=== PATIENT | female | born 1975 | race Caucasian/White ===

== ENCOUNTER 2017-11-12 02:04 | Emergency (ER) | payer BC ==
[2017-11-12] MEDS ORDERED: HYDROmorphone 0.5 MG/0.5 ML SYRINGE IVPUSH ONE (02:32)
[2017-11-12] MEDS ORDERED: Ondansetron 4 MG/2 ML SDV IVPUSH ONE (02:39)
--- NOTE | 2017-11-12 02:39 | EDM.PDOC ---
ED HPI GENERAL MEDICAL PROBLEM - General Chief Complaint: Chest Pain Stated Complaint: CHEST PAIN Time Seen by Provider: 11/12/17 02:17 Source of Information: Reports: Patient, Family (, son) History Limitations: Reports: No Limitations - History of Present Illness INITIAL COMMENTS - FREE TEXT/NARRATIVE: The patient states that she developed sudden onset upper central chest discomfort radiating through between her scapulae around 09:00 yesterday morning , 11/11/2017. Her chest pain is made worse with movement. She had associated nausea, diaphoresis, dyspnea, and a sense of impending doom. She has also had a headache and lightheadedness. She states that she was feeling dizzy while on the toilet. She yelled out for her before falling. The caught the patient, and she was uninjured. She now feels generally weak, but denies neurologic symptoms such as tingling, numbness, or focal weakness. The patient also reports a slight cough. The patient states that she took 2 Tylenol migraine at 13:30, and another 2 at 19:30, with questionable relief of her headache. No prior similar symptoms. The patient reports that she has had a headache during the day over the past 2 weeks. In the ED, it is noted that the patient's oxygen saturation is 100% on room air. The patient's PCP is Dr. Tatum. Chest Pain Score (Numeric/FACES): 9 - Related Data Allergies Allergy/AdvReac Type Severity Reaction Status Date / Time seasonal Allergy asthma Uncoded 09/26/14 08:10 like symptoms Home Meds: Home Meds Albuterol [Proair HFA] 1 puff IH Q4H PRN 09/25/14 [History] Loratadine/Pseudoephedrine [Claritin-D 12 Hour] 1 tab PO Q12HR PRN 09/25/14 [ History] Multivitamin [Super Multivitamin] 1 tab PO DAILY 09/25/14 [History] Progesterone [First-Progesterone VGS 25] 25 mg VG DAILY 09/25/14 [History] Past Medical History HEENT History: Reports: Allergic Rhinitis - Past Surgical History HEENT Surgical History: Reports: Tonsillectomy GI Surgical History: Reports: Appendectomy, Cholecystectomy Female Surgical History: Reports: Tubal Ligation Social & Family History - Family History Family Medical History: Noncontributory - Tobacco Use Smoking Status *Q: Never Smoker Second Hand Smoke Exposure: No - Caffeine Use Caffeine Use: Reports: None - Alcohol Use Alcohol Use History: No - Recreational Drug Use Recreational Drug Use: No - Living Situation & Occupation Living situation: Reports: , with Spouse, with Family (Son) 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 ED EXAM, GENERAL - Physical Exam Exam: See Below Exam Limited By: No Limitations General Appearance: Alert, WD/WN, Anxious Eye Exam: Bilateral Eye: Normal Inspection Ears: Normal External Exam, Hearing Grossly Normal Nose: Normal Inspection, No Blood Throat/Mouth: Normal Inspection, Normal Lips, Normal Voice, No Airway Compromise Head: Atraumatic, Normocephalic Neck: Normal Inspection, Full Range of Motion Respiratory/Chest: No Respiratory Distress, Lungs Clear, Normal Breath Sounds, No Accessory Muscle Use, Chest Non-Tender Cardiovascular: Normal Peripheral Pulses, Regular Rate, Rhythm, No Edema, No Gallop, No JVD, No Murmur, No Rub Peripheral Pulses: 4+: Radial (L), Radial (R) GI/Abdominal: Normal Bowel Sounds, Soft, Non-Tender, No Organomegaly, No Distention, No Abnormal Bruit, No Mass (Female) Exam: Deferred Rectal (Female) Exam: Deferred Back Exam: Normal Inspection, Full Range of Motion, NT Extremities: Normal Inspection, Normal Range of Motion, No Pedal Edema, Normal Capillary Refill Neurological: Alert, Oriented, Normal Cognition, No Motor/Sensory Deficits Psychiatric: Normal Affect, Anxious Skin Exam: Warm, Dry, Intact, Normal Color, No Rash EKG INTERPRETATION EKG Date: 11/12/17 Time: 02:12 Rhythm: NSR Rate (Beats/Min): 93 [place]: Normal P-Wave: Present QRS: Normal ST-T: Normal QT: Normal Comparison: NA - No Prior EKG Course - Vital Signs Last Recorded V/S: Last Vital Signs Temp 37.3 C 11/12/17 02:08 Pulse 96 11/12/17 02:08 Resp 13 11/12/17 02:08 BP 111/60 11/12/17 02:08 Pulse Ox 96 11/12/17 02:08 Orthostatic Blood Pressure [ 102/66 Standing] Orthostatic Blood Pressure [ 106/64 Sitting] Orthostatic Blood Pressure [ 106/62 Supine] - Orders/Labs/Meds Orders: Active Orders 24 hr Category Date Time Status EKG Documentation Completion [RC] STAT Care 11/12/17 02:30 Active Orthostatic Vital Signs [RC] STAT Care 11/12/17 02:31 Active Abdomen w Cont [CT] Routine Exams 11/12/17 02:31 Taken Chest 1V Frontal [CR] Stat Exams 11/12/17 02:34 Taken Chest w Cont [CT] Stat Exams 11/12/17 02:31 Taken Sodium Chloride 0.9% [Normal Saline] 1,000 ml Med 11/12/17 02:45 Active IV ASDIRECTED Medication Orders Sodium Chloride (Normal Saline) 1,000 mls @ 150 mls/hr IV ASDIRECTED ROXANNE Last Admin: 11/12/17 02:52 Dose: 150 mls/hr Labs: Laboratory Tests 11/12/17 11/12/17 11/12/17 Range/Units 02:13 02:13 02:13 WBC 14.34 H (3.98-10.04) K/mm3 RBC 4.50 (3.98-5.22) M/mm3 Hgb 13.9 (11.2-15.7) gm/L Hct 40.5 (34.1-44.9) % MCV 90.0 (79.4-94.8) fl MCH 30.9 (25.6-32.2) pg MCHC 34.3 (32.2-35.5) g/dl RDW Std Deviation 38.8 (36.4-46.3) fL Plt Count 200 (182-369) K/mm3 MPV 9.9 (9.4-12.3) fl Neutrophils % (Manual) 92 H (40-60) % Band Neutrophils % 2 (0-10) % Lymphocytes % (Manual) 0 L (20-40) % Atypical Lymphs % 2 % Monocytes % (Manual) 4 (2-10) % Eosinophils % (Manual) 0 L (0.7-5.8) % Basophils % (Manual) 0 L (0.1-1.2) Platelet Estimate Adequate Plt Morphology Comment Normal RBC Morph Comment Normal PT 10.8 (8.0-13.0) SECONDS INR 1.01 APTT 25 (22-36) SECONDS D-Dimer, Quantitative 0.25 (0.19-0.59) mg/L Puncture Site ABG pH (7.35-7.45) ABG pCO2 (35.0-45.0) mmHg ABG pO2 (80.0-100.0) mmHg ABG HCO3 (22.0-26.0) meq/L ABG O2 Saturation (96.0-97.0) % ABG Base Excess (-2-2.0) A-a Gradient mmHg O2 Delivery Device FiO2 (21.00-100.00) % Sodium 137 (136-145) mEq/L Potassium 3.3 L (3.5-5.1) mEq/L Chloride 101 (98-107) mEq/L Carbon Dioxide 28 (21-32) mEq/L Anion Gap 11.3 (5-15) BUN 14 (7-18) mg/dL Creatinine 0.8 (0.55-1.02) mg/dL Est Cr Clr Drug Dosing 65.54 mL/min Estimated GFR (MDRD) > 60 (>60) mL/min BUN/Creatinine Ratio 17.5 (14-18) Glucose 169 H (74-106) mg/dL Calcium 8.5 (8.5-10.1) mg/dL Magnesium 1.6 L (1.8-2.4) mg/dl Total Bilirubin 0.6 (0.2-1.0) mg/dL AST 42 H (15-37) U/L ALT 52 (14-59) U/L Alkaline Phosphatase 59 (46-116) U/L Troponin I 0.051 (0.00-0.056) ng/mL NT-Pro-B Natriuret Pep (0-125) pg/mL Total Protein 6.9 (6.4-8.2) g/dl Albumin 3.8 (3.4-5.0) g/dl Globulin 3.1 gm/dL Albumin/Globulin Ratio 1.2 (1-2) TSH 3rd Generation 2.019 (0.358-3.74) uIU/mL Urine Color (Yellow) Urine Appearance (Clear) Urine pH (5.0-8.0) Ur Specific [place] (1.005-1.030) Urine Protein (Negative) Urine Glucose (UA) (Negative) Urine Ketones (Negative) Urine Occult Blood (Negative) Urine Nitrite (Negative) Urine Bilirubin (Negative) Urine Urobilinogen (0.2-1.0) Ur Leukocyte Esterase (Negative) Urine RBC (0-5) /hpf Urine WBC (0-5) /hpf Urine WBC Clumps (NOT SEEN) /hpf Ur Epithelial Cells (0-5) /hpf Urine Bacteria (FEW) /hpf Urine Mucus (FEW) /hpf Urine HCG, Qual (NEGATIVE) 11/12/17 11/12/17 11/12/17 Range/Units 02:13 02:45 03:35 WBC (3.98-10.04) K/mm3 RBC (3.98-5.22) M/mm3 Hgb (11.2-15.7) gm/L Hct (34.1-44.9) % MCV (79.4-94.8) fl MCH (25.6-32.2) pg MCHC (32.2-35.5) g/dl RDW Std Deviation (36.4-46.3) fL Plt Count (182-369) K/mm3 MPV (9.4-12.3) fl Neutrophils % (Manual) (40-60) % Band Neutrophils % (0-10) % Lymphocytes % (Manual) (20-40) % Atypical Lymphs % % Monocytes % (Manual) (2-10) % Eosinophils % (Manual) (0.7-5.8) % Basophils % (Manual) (0.1-1.2) Platelet Estimate Plt Morphology Comment RBC Morph Comment PT (8.0-13.0) SECONDS INR APTT (22-36) SECONDS D-Dimer, Quantitative (0.19-0.59) mg/L Puncture Site Lt brachial ABG pH 7.46 H (7.35-7.45) ABG pCO2 31.5 L (35.0-45.0) mmHg ABG pO2 83.0 (80.0-100.0) mmHg ABG HCO3 22.3 (22.0-26.0) meq/L ABG O2 Saturation 97.9 H (96.0-97.0) % ABG Base Excess -0.3 (-2-2.0) A-a Gradient 12 mmHg O2 Delivery Device Room air FiO2 21.00 (21.00-100.00) % Sodium (136-145) mEq/L Potassium (3.5-5.1) mEq/L Chloride (98-107) mEq/L Carbon Dioxide (21-32) mEq/L Anion Gap (5-15) BUN (7-18) mg/dL Creatinine (0.55-1.02) mg/dL Est Cr Clr Drug Dosing mL/min Estimated GFR (MDRD) (>60) mL/min BUN/Creatinine Ratio (14-18) Glucose (74-106) mg/dL Calcium (8.5-10.1) mg/dL Magnesium (1.8-2.4) mg/dl Total Bilirubin (0.2-1.0) mg/dL AST (15-37) U/L ALT (14-59) U/L Alkaline Phosphatase (46-116) U/L Troponin I (0.00-0.056) ng/mL NT-Pro-B Natriuret Pep 58 (0-125) pg/mL Total Protein (6.4-8.2) g/dl Albumin (3.4-5.0) g/dl Globulin gm/dL Albumin/Globulin Ratio (1-2) TSH 3rd Generation (0.358-3.74) uIU/mL Urine Color Yellow (Yellow) Urine Appearance Slt cloudy H (Clear) Urine pH 7.5 (5.0-8.0) Ur Specific [place] 1.015 (1.005-1.030) Urine Protein 2+ H (Negative) Urine Glucose (UA) Negative (Negative) Urine Ketones 2+ H (Negative) Urine Occult Blood 1+ H (Negative) Urine Nitrite Negative (Negative) Urine Bilirubin Negative (Negative) Urine Urobilinogen 0.2 (0.2-1.0) Ur Leukocyte Esterase Trace H (Negative) Urine RBC 0-5 (0-5) /hpf Urine WBC 5-10 H (0-5) /hpf Urine WBC Clumps Rare (NOT SEEN) /hpf Ur Epithelial Cells 5-10 H (0-5) /hpf Urine Bacteria Rare (FEW) /hpf Urine Mucus Not seen (FEW) /hpf Urine HCG, Qual (NEGATIVE) 11/12/17 Range/Units 03:35 WBC (3.98-10.04) K/mm3 RBC (3.98-5.22) M/mm3 Hgb (11.2-15.7) gm/L Hct (34.1-44.9) % MCV (79.4-94.8) fl MCH (25.6-32.2) pg MCHC (32.2-35.5) g/dl RDW Std Deviation (36.4-46.3) fL Plt Count (182-369) K/mm3 MPV (9.4-12.3) fl Neutrophils % (Manual) (40-60) % Band Neutrophils % (0-10) % Lymphocytes % (Manual) (20-40) % Atypical Lymphs % % Monocytes % (Manual) (2-10) % Eosinophils % (Manual) (0.7-5.8) % Basophils % (Manual) (0.1-1.2) Platelet Estimate Plt Morphology Comment RBC Morph Comment PT (8.0-13.0) SECONDS INR APTT (22-36) SECONDS D-Dimer, Quantitative (0.19-0.59) mg/L Puncture Site ABG pH (7.35-7.45) ABG pCO2 (35.0-45.0) mmHg ABG pO2 (80.0-100.0) mmHg ABG HCO3 (22.0-26.0) meq/L ABG O2 Saturation (96.0-97.0) % ABG Base Excess (-2-2.0) A-a Gradient mmHg O2 Delivery Device FiO2 (21.00-100.00) % Sodium (136-145) mEq/L Potassium (3.5-5.1) mEq/L Chloride (98-107) mEq/L Carbon Dioxide (21-32) mEq/L Anion Gap (5-15) BUN (7-18) mg/dL Creatinine (0.55-1.02) mg/dL Est Cr Clr Drug Dosing mL/min Estimated GFR (MDRD) (>60) mL/min BUN/Creatinine Ratio (14-18) Glucose (74-106) mg/dL Calcium (8.5-10.1) mg/dL Magnesium (1.8-2.4) mg/dl Total Bilirubin (0.2-1.0) mg/dL AST (15-37) U/L ALT (14-59) U/L Alkaline Phosphatase (46-116) U/L Troponin I (0.00-0.056) ng/mL NT-Pro-B Natriuret Pep (0-125) pg/mL Total Protein (6.4-8.2) g/dl Albumin (3.4-5.0) g/dl Globulin gm/dL Albumin/Globulin Ratio (1-2) TSH 3rd Generation (0.358-3.74) uIU/mL Urine Color (Yellow) Urine Appearance (Clear) Urine pH (5.0-8.0) Ur Specific [place] (1.005-1.030) Urine Protein (Negative) Urine Glucose (UA) (Negative) Urine Ketones (Negative) Urine Occult Blood (Negative) Urine Nitrite (Negative) Urine Bilirubin (Negative) Urine Urobilinogen (0.2-1.0) Ur Leukocyte Esterase (Negative) Urine RBC (0-5) /hpf Urine WBC (0-5) /hpf Urine WBC Clumps (NOT SEEN) /hpf Ur Epithelial Cells (0-5) /hpf Urine Bacteria (FEW) /hpf Urine Mucus (FEW) /hpf Urine HCG, Qual Negative (NEGATIVE) Meds: Medications Generic Name Dose Route Start Last Admin Trade Name Esa PRN Reason Stop Dose Admin Sodium Chloride 1,000 mls @ 150 mls/hr 11/12/17 02:45 11/12/17 02:52 Normal Saline IV 150 mls/hr ASDIRECTED ROXANNE Administration Discontinued Medications Generic Name Dose Route Start Last Admin Trade Name Esa PRN Reason Stop Dose Admin Hydromorphone HCl 0.5 mg 11/12/17 02:32 11/12/17 02:52 Dilaudid IVPUSH 11/12/17 02:33 0.5 mg ONETIME ONE Administration Hydromorphone HCl Confirm 11/12/17 02:48 11/12/17 02:53 Dilaudid Administered 11/12/17 02:49 Not Given Dose 0.5 mg .ROUTE .STK-MED ONE Magnesium Sulfate 2 gm/ Premix 50 mls @ 50 mls/hr 11/12/17 03:12 11/12/17 03: 23 IV 11/12/17 04:11 50 mls/hr ONETIME ONE Administration Iopamidol 100 ml 11/12/17 03:03 11/12/17 03:15 Isovue-370 (76%) IVPUSH 11/12/17 03:04 100 ml ONETIME ONE Administration Ondansetron HCl 4 mg 11/12/17 02:39 11/12/17 02:56 Zofran IVPUSH 11/12/17 02:40 4 mg ONETIME ONE Administration - Re-Assessments/Exams Free Text/Narrative Re-Assessment/Exam: 11/12/17 02:38 The triage note indicates that the patient had sudden onset central chest pain, 9 or 10 out of 10, radiating through to between her scapulae. This is strongly suggestive of an aortic dissection. In actual fact, however, the patient tells me that it is not a pain, rather, it is a discomfort, which lessens my concern for a dissection, nevertheless, I have ordered a CT aortogram, along with a chest pain evaluation. I have ordered Dilaudid for her pain and Zofran for nausea, along with IV fluid. 11/12/17 03:04 The patient's ABG represents a chronic (compensated) respiratory alkalosis. 11/12/17 03:15 Both the patient's potassium and magnesium are mildly depressed, at 3.3 and 1.6 , respectively. I have ordered a 2 g Mg rider. 11/12/17 03:33 CT aortogram of the chest and abdomen is read by [facility] as "No acute findings in the arterial system of the chest or abdomen. No aortic dissection." Two-view chest radiograph appears to be grossly normal. Cardiac silhouette is within normal limits. No pulmonary vascular congestion. No pleural effusions. No focal infiltrate. No pneumothorax. Formal read per the Radiologist pending. 11/12/17 03:49 The patient is not orthostatic. 11/12/17 04:25 The patient's urinalysis is consistent with contamination, not a UTI. 11/12/17 04:38 Test results discussed with the patient, her , and son. It appears that the patient was suffering from a panic attack and hyperventilation. Her ABG confirmed hyperventilation, and the remainder of her symptoms and lab work are consistent with that, as well. This was explaine the patient's lightheadedness and near-syncope, headache, chest pain, nausea, diaphoresis, and sense of impending doom. He would explain the stress reaction of her elevated WBC count without bandemia, her mild hypokalemia, and even her mild hyperglycemia. Other medical causes such as metabolic acidosis, hypocalcemia, hypoglycemia, hyperthyroidism, liver failure, severe anemia, sepsis, acute coronary event, pneumothorax, pneumonia, dysrhythmia, PE, , and CHF have been ruled out. Since this is the first time that the patient has had such an episode, no treatment is necessary, however, I am recommending that if they recur, that she follow-up with Dr. Tatum to discuss treatment options for anxiety. Departure - Departure Time of Disposition: 04:41 Disposition: Home, Self-Care 01 Condition: Good Clinical Impression: Hyperventilation syndrome - Discharge Information Instructions: Hyperventilation Referrals: Agusto Tatum MD [Primary Care Provider] - Forms: ED Department Discharge Additional Instructions: You were seen in the emergency room for chest pain, nausea, sweatiness, shortness of breath, a sense of impending doom, headache, and lightheadedness with nearly passing out. Workup in the ER included blood work, an arterial blood gas, a urinalysis, a urine test, a chest x-ray, a CT aortogram, positional blood pressure checks, and an ECG. Your workup confirmed that you were hyperventilating, likely due to anxiety/ panic attack, as other known medical causes of hyperventilation were ruled out. Your magnesium level was found to be mildly low and was replaced through an IV. Since this is the first time that you have had an episode of hyperventilation, no further treatment is necessary, however, if these episodes recur, we recommend that you follow-up with your PCP, Dr. Tatum, to discuss treatment options for anxiety. If any other problems, please do not hesitate to return to the ER. - My Orders Last 24 Hours: My Active Orders 11/12/17 02:30 EKG Documentation Completion [RC] STAT 11/12/17 02:31 Orthostatic Vital Signs [RC] STAT Abdomen w Cont [CT] Routine Chest w Cont [CT] Stat 11/12/17 02:34 Chest 1V Frontal [CR] Stat 11/12/17 02:45 Sodium Chloride 0.9% [Normal Saline] 1,000 ml IV ASDIRECTED - Assessment/Plan Last 24 Hours: My Active Orders 11/12/17 02:30 EKG Documentation Completion [RC] STAT 11/12/17 02:31 Orthostatic Vital Signs [RC] STAT Abdomen w Cont [CT] Routine Chest w Cont [CT] Stat 11/12/17 02:34 Chest 1V Frontal [CR] Stat 11/12/17 02:45 Sodium Chloride 0.9% [Normal Saline] 1,000 ml IV ASDIRECTED
[2017-11-12] MEDS ORDERED: Sodium Chloride 0.9% 1,000 ML IV SCH (02:45)
[2017-11-12] MEDS ORDERED: HYDROmorphone 0.5 MG/0.5 ML SYRINGE ONE (02:48)
[2017-11-12] MEDS ORDERED: Iopamidol 755 Mg/ML 100 ML Bottle IVPUSH ONE (03:03)
[2017-11-12] MEDS ORDERED: Magnesium Sulfate/Water 2 GM in Premix Bag 1 BAG IV ONE (03:12)
[2017-11-12 05:05] VITALS: BP 99/62
--- NOTE | 2017-11-12 15:44 | CT ---
This study was dictated as part of chest and abdomen exam
--- NOTE | 2017-11-12 15:44 | CT ---
CT chest Technique: Multiple axial sections through the chest were obtained. Intravenous contrast was utilized. Study performed as an aortogram exam. Findings: Aorta shows no aneurysmal dilatation or dissection. Pulmonary arteries show no filling defects to indicate pulmonary embolism. Mediastinum and hilar regions show no adenopathy or mass. No axillary adenopathy is seen. No pericardial thickening is seen. Small 2 mm nodule noted in a subpleural location within the right middle lobe. This is most likely incidental. Lungs otherwise are clear without acute parenchymal densities. No pleural effusions are seen. Bone window settings were reviewed which appear within normal limits for the patient's age. Impression: 1. Two mm subpleural nodule within right middle lobe most likely incidental. 2. No additional abnormality identified on CT study of the chest. There is specifically no abdominal aortic aneurysm or dissection being seen. Diagnostic code #1 Agree with preliminary report issued by [facility] ([employer] preliminary report dictated on 11/12/17, 4:31 AM Central Time) CT abdomen Technique: Multiple axial images were obtained from above the dome of the diaphragm inferiorly to the mid pelvis. Contrast obtained during arterial phase for aortogram study. Reconstructed coronal and sagittal images were obtained. Comparison: Prior abdominal CT exam of 08/29/15. Findings: Abdominal aorta shows no aneurysmal or dissection. Visualized superior mesenteric artery and celiac axis is unremarkable. Renal arteries appear normal. Inferior mesenteric artery is also patent. Common iliac arteries and proximal internal and external iliac arteries are unremarkable. Liver shows no focal abnormality. Surgical clips are noted from prior cholecystectomy. Spleen appears within normal limits. Adrenal glands show no nodule. Kidneys show symmetric contrast enhancement without hydronephrosis or mass. Pancreas appears within normal limits. No retroperitoneal adenopathy or mesenteric abnormalities are seen. Bone window settings were reviewed which appear within normal limits. Impression: 1. No abdominal aortic aneurysm or dissection is seen. Other portions of the opacified branch vessels from the aortic appear within normal limits. 2. Nothing acute is seen on CT study of the abdomen. Diagnostic code #1 Agree with preliminary report issued by [facility] ([facility] preliminary report dictated on 11/12/18, 4:31 AM Central Time)
--- NOTE | 2017-11-12 15:44 | CR ---
Chest: Portable view of the chest was obtained. Comparison: Prior chest CT study performed earlier on the same day (03:13 AM). Heart size and mediastinum are normal. Lungs are clear. Bony structures are grossly intact. Contrast noted within the collecting system of both kidneys compatible with recent CT exam. Impression: 1. Nothing acute is seen on portable chest x-ray. Diagnostic code #1
== END 2017-11-12 04:53 | disposition home or self-care (01) ==
LOC: JD.ED 02:04
DX: F45.8 Other somatoform disorders (principal); Z79.899 Other long term (current) drug therapy; Z91.09 Other allergy status, other than to drugs and biological substances
CPT/HCPCS: 36415; 36600; 71045; 71260; 74160; 80053; 81001; 81025; 82803; 83735; 83880; 84443; 84484; 85025; 85379; 85610; 85730; 93005; 96361; 96365; 96375; 99285; J1170; J2405; J7040; Q9967; 93010; 99284-25; J3475